=== PATIENT | male | born 1970 | race Caucasian/White ===

== ENCOUNTER 2024-08-01 19:37 | Emergency (ER) | payer OTHER, SELFPAY ==
[2024-08-01 19:39] VITALS: BP 117/86; PULSE 85; RESP 20; TEMP 36.7; O2SAT 96; BMI 34.0
--- NOTE | 2024-08-01 20:56 | ED_ITS ---
<Statement entered by Mary Oliveira DO - 08/01/24 23:18> I was consulted by the VINICIO, and we discussed the complexity of the problems being addressed. I approved the treatment and management plan for this patient's care in the emergency department, thus performing a substantive portion of the medical decision making. Patient ambulatory without significant issue. Mary Oliveira DO Discharge Plan Disposition Patient Disposition: Home, Self-Care Condition: Good Prescriptions Prescriptions: New methylprednisolone [Medrol (Ayan)] 4 mg tablets,dose pack 4 mg PO DAILY Qty: 21 0RF Referrals Follow up/Referrals: Angelo Yu MD [Primary Care Provider] - See instructions Activity Restrictions/Add. Instructions Additional Instructions/Restrictions: Follow-up with your pain management physician as scheduled, recommend ice, p.o. muscle relaxers, p.o. pain medications as currently prescribed. Return to the emergency department any worsening signs or symptoms. Clinical Impressions Clinical Impression: Strain of lumbar region, Lumbar radiculopathy Instructions Patient Instructions: DI for Low Back Pain, DI for Back Pain With Sciatica Print Language Print Language: Maldivian Discharge ED Provider: Mary Oliveira General Adult HPI General Chief complaint: Back Pain/Injury Stated complaint: [id number] back pain Time Seen by Provider: 08/01/24 20:49 Mode of Arrival: Wheelchair Source of Information: Patient Limitations: No Limitations Description of Symptoms (Recalled from ER Triage Doc. by RN): Patient to triage in wheelchair with complaints of lower right sided back pain after tripping over cord in bedroom. Patient denies falling to ground, or LOC. States that when pressure is applied to affected area pain shoots down right leg. Patient with back injury in 2004, and currently on pain medication (percocet 7.5mg) for neck injury in 2003 at work, and currently in workers comp for issue. Pain 05/18. History of Present Illness HPI narrative: 54-year-old male presents emergency department with right sided lower lumbar spine pain, after tripping over a fan cord , patient denies any LOC, denies any other extremity upper or lower pain, denies any other acute stomatitis fever chills chest pain shortness of breath nausea vomiting, constipation, diarrhea, abdominal pain, no urinary type symptomatology, patient is been able to ambulate after the incident, but is pain limited, she does have prior history of lumbar L1 spinal fracture requiring kyphoplasty, as well as cervical disc disease, he sees, well with pain management for this, actually has upcoming appointment tomorrow. Other past medical history consistent with hypertension osteoarthritis, patient denies any tobacco, alcohol or drug use, distress vital grossly unremarkable Onset (ago): hour(s) Related Data Previous Rx's ?Medication ?Instructions ?Recorded methylprednisolone 4 mg tablets in 4 mg PO DAILY #21 tabs 08/01/24 a dose pack (Medrol (Ayan)) Allergies Allergy/AdvReac Type Severity Reaction Status Date / Time lovastatin [LOVASTATIN] Allergy Unknown Verified 05/23/24 11:05 [facility] Disclaimer: The information contained in this section may have been updated after the patient was seen, as this information can be updated by other users. Social History (Updated 05/24/24 @ 16:47 by Angelo Yu MD) Smoking Status: Never smoker alcohol intake: never current occupational status: disabled Travel in the last 8 weeks: None ROS Obtained: Yes All systems reviewed & no additional complaints except as documented Physical Exam General General appearance: alert and in no apparent distress Head Head exam: atraumatic and normocephalic Eye Eye exam: Present PERRL and EOMI ENT ENT exam: Present mucous membranes moist Neck Neck exam: Present normal inspection Chest Chest inspection: Present normal inspection and symmetric chest wall rise Respiratory Respiratory exam: Present normal lung sounds bilaterally; Absent respiratory distress Cardiovascular Cardiovascular exam: Present regular rate and normal rhythm Abdominal Exam Abdominal exam: Present soft; Absent tenderness Extremities Exam Extremities exam: Present normal inspection; Absent tenderness Back Exam Back exam: Present normal inspection, tenderness, paraspinal tenderness and straight leg raise (R) Neurological Exam Neurological exam: Present alert and oriented X3 Psychiatric Psychiatric exam: Present normal affect Skin Skin exam: Present warm and dry Medical Decision Making Medical Records Screening: Per USPSTF and CDC recommendations, given the prevalence of disease in our region, it is our hospital?s policy to screen for HIV and viral Hepatitis for all patients aged 18 and over and those with ongoing risk factors. [place] Inquiry Pt receiving controlled substance: No Vital Signs: 08/01/24 19:39 08/01/24 21:02 Temperature 98.0 F Temperature Source Oral Pulse Rate 79 Pulse Rate [Right] 85 Respiratory Rate 20 16 Blood Pressure 141/93 H Blood Pressure [Right Arm] 117/86 Blood Pressure Mean [Right Arm] 96 Blood Pressure Source Automatic Cuff Blood Pressure Source [Right Arm] Automatic Cuff Blood Pressure Position Sitting Blood Pressure Position [Right Arm] Sitting 02 Sat by Pulse Oximetry 96 Oxygen Delivery Method Room Air Orders (Tests/Meds): ED MEDICATIONS Discontinued Medications Generic Name Dose Route Start Last Admin Trade Name Vania PRN Reason Stop Dose Admin Cyclobenzaprine HCl 10 mg 08/01/24 21:13 08/01/24 21:32 Cyclobenzaprine 10mg Tablet PO 08/01/24 21:14 10 mg ONCE ONE Administration Ketorolac Tromethamine 15 mg 08/01/24 21:12 08/01/24 21:32 Ketorolac 30mg/Ml Vial IM 08/01/24 21:13 15 mg ONCE ONE Administration Lidocaine 1 each 08/01/24 21:12 08/01/24 21:31 Lidocaine 5% Transdermal Patch TP 08/01/24 21:13 1 each ONCE ONE Administration ORDERS Category Date Time Status CT lumbar spine wo con Stat Cat Scan 08/01/24 21:14 Completed Medical Decision Narrative: 54-year-old male presents emergency department with lower lumbar spine pain after fall, differential diagnose include not limited to acute lumbar sacral strain, lumbar spinal fracture, herniated nucleus pulposus, lumbar degenerative disc disease. I discussed the patient case with the attending physician Dr. Oliveira Will give p.o. Flexeril 10 mg for pain, will give 15 mg IM Toradol, 5% lidocaine patch, and obtain CT of the lumbar spine without contrast for further evaluation I reviewed the patient's CT of the lumbar spine without contrast along the corresponding radiologic report, there is vertebroplasty cement at L1, no evidence of any acute fracture or destructive bony lesion, slight decrease in anterior vertebral body height at L1 appears chronic, no significant degenerative disc disease, minimal facet arthropathy, adequate spinal canal neuroforamina. I discussed the results with the patient and family the bedside, patient is feeling better as far as his pain is concerned, he has follow-up with his pain management physician tomorrow, encouraged him to keep this follow-up, he has muscle relaxers and p.o. narcotics at home, recommend ice, NSAIDs and other p.o. pain medications as prescribed. I will send in a short course of Medrol Dosepak to the patient's pharmacy. Strict ED return precautions given to the patient family the bedside, patient and agree with current treatment plan/discharge plan. Critical Care Critical Care Time Critical Care Time: No
--- NOTE | 2024-08-01 21:01 | PC.NURSE ---
pt reports tripping over fan cord, now having right lower back pain that radiates down right leg, sharp stabbing
[2024-08-01 21:02] VITALS: BP 141/93; PULSE 79; RESP 16
--- NOTE | 2024-08-01 21:14 | CT_ITS ---
PROCEDURE INFORMATION: Exam: CT Lumbar Spine Without Contrast Exam date and time: 08/01/2024 9:26 PM Age: 54 years old Clinical indication: Injury or trauma; Fall; Other: Pain; Prior surgery; Surgery date: 6+ months; Surgery type: Kyphoplasty; Additional info: Back pain after fall TECHNIQUE: Imaging protocol: Computed tomography of the lumbar spine without contrast. Radiation optimization: All CT scans at this facility use at least one of these dose optimization techniques: automated exposure control; mA and/or kV adjustment per patient size (includes targeted exams where dose is matched to clinical indication); or iterative reconstruction. COMPARISON: No relevant prior studies available. FINDINGS: Bones/joints: There are 5 lumbar type vertebrae in normal alignment. There is vertebroplasty cement at L1. No evidence of acute fracture or destructive bony lesion. Slight decrease in anterior vertebral body height at L1 appears chronic. No significant degenerative disc disease. Minimal facet arthropathy. Adequate spinal canal and neural foramina. Vasculature: Visualized abdominal aorta is normal in caliber. Soft tissues: Normal psoas muscles. Normal paraspinous muscles. IMPRESSION: No acute abnormality to explain patient's pain. Vertebroplasty cement noted at L1. Adequate spinal canal and neural foramina throughout.
[2024-08-01] MEDS: LIDOCAINE 5% TRANSDERMAL PATCH 1 EACH TP (21:31)
[2024-08-01] MEDS: KETOROLAC 30MG/ML VIAL 15 MG IM (21:32)
[2024-08-01] MEDS: CYCLOBENZAPRINE 10MG TABLET 10 MG PO (21:32)
[2024-08-01 22:46] VITALS: BP 126/91; PULSE 66; RESP 16; TEMP 36.7; O2SAT 94
== END 2024-08-01 22:47 | disposition home or self-care (01) ==
PROVIDERS: Emergency Provider Emergency Medicine; PCP Internal Medicine
DX: S39.012A Strain of muscle, fascia and tendon of lower back, initial encounter (principal); M54.16 Radiculopathy, lumbar region; W01.10XA Fall on same level from slipping, tripping and stumbling with subsequent striking against unspecified object, initial encounter
CPT/HCPCS: 72131; 96372; 99284; J1885

== ENCOUNTER 2024-12-09 13:39 | Outpatient (CLI) | payer OTHER, SELFPAY ==
--- NOTE | 2024-12-09 13:43 | MR_ITS ---
FINAL REPORT CLINICAL HISTORY: LEFT SHOULDER PAIN LIMITED ROM WEAKNESS IN ARM COMPARISON: None FINDINGS: Multi planar MR imaging of the left shoulder was performed. There is increased signal in the distal supraspinatus tendon consistent with intrasubstance degeneration. No discrete tear is seen. There is no abnormal fluid in the subacromial/subdeltoid bursa. The anterior and posterior glenoid meagan appear intact. The biceps tendon appears intact. The acromioclavicular joint appears intact. IMPRESSION: Increased signal in the distal supraspinatus tendon consistent with intrasubstance degeneration, without a discrete tear visualized. Reviewed, Interpreted and Dictated by Kevin Johnson MD Transcribed by Lisa Mina Authenticated and [facility]
== END 2024-12-09 23:59 | disposition home or self-care (01) ==
LOC: RAD 13:40
PROVIDERS: PCP Physician Assistant Medical; Visit Provider Physician Assistant Medical
DX: M25.512 Pain in left shoulder (principal)
CPT/HCPCS: 73221

== ENCOUNTER 2025-03-01 09:00 | Outpatient (RCR) | payer OTHER, SELFPAY | END 2025-03-01 23:59 | disposition home or self-care (01) | LOC: PT 09:00 | PROVIDERS: PCP Internal Medicine; Visit Provider Internal Medicine | DX: M25.512 Pain in left shoulder (principal) | CPT/HCPCS: 97014; 97016; 97035; 97110; 97140; 97163; 97530; G0283 ==